=== PATIENT | male | born 1950 | race African-American/Black ===

== ENCOUNTER 2017-02-17 16:35 | Inpatient (IN) | payer MEDICARE ==
--- NOTE | ~2017-02-17 | EKG ---
PATIENT: BECCA MEDINA UNIT #: [id number] Ventricular Rate: 64 BPM Atrial Rate: 64 BPM P-R Interval: 148 ms QRS Duration: 114 ms Q-T Interval: 464 ms QTC Calculation(Bezet): 478 ms P Odell: 4 degrees Calculated R Odell: 70 degrees Calculated T Odell: 19 degrees Diagnosis Line: Normal sinus rhythm Diagnosis Line: Normal ECG Diagnosis Line: No previous ECGs available Diagnosis Line: Confirmed by TIFFANY ROBERTS MD ([id number]) on 02/18/2017 Diagnosis Line: 7:39:47 AM INTERPRETING MD: ALEJANDRA SHAH
--- NOTE | ~2017-02-17 | HP ---
Unit #: [id number] #: [id number] Patient: BECCA MEDINA [id number] [address] [place], [place] [address] [id number] MR#: [id number] NAME: BECCA MEDINA ROOM: Age: 66 Sex: M Admission Date: 02/17/2017 : 1950 Attending Physician: Nico Mcqueen M.D. Primary Care Physician: [facility] HISTORY AND PHYSICAL CHIEF COMPLAINT Dizziness. HISTORY OF PRESENT ILLNESS The patient is a 66-year-old male with a history of hypertension brought to the emergency room status post syncopal episode yesterday. The patient stated that he was standing, and then he had a fall. He went to the primary care physician earlier this morning and was recommended to go to the emergency room. The patient was found to have acute kidney injury with a creatinine of 3.2 and potassium of 2.4. The patient denied any chest pain, nausea, vomiting, diaphoresis, or shortness of breath. The patient is being admitted for the above reasons. PAST MEDICAL HISTORY 1. Diverticulitis. 2. Hypertension. 3. Possible colonic polyps in the past. ALLERGIES None. HOME MEDICATIONS 1. Lopid. 2. Atenolol. 3. Norvasc. 4. Cozaar. FAMILY HISTORY Hypertension and lung cancer. SOCIAL HISTORY Patient lives alone. He smokes one pack of cigarettes per day and drinks three to four shots with two beers on a daily basis. REVIEW OF SYSTEMS A 14-point review of systems was performed and only pertinent positive findings are described above. The remaining are negative. PHYSICAL EXAMINATION GENERAL: Patient is lying in bed not in acute distress. VITAL SIGNS: Temperature 98.1, pulse 64, respiratory rate 20, blood pressure 99/63, and saturating 97% on room air. HEENT: Head atraumatic, normocephalic. Pupils equal, round, and reactive to light and accommodation. Extraocular movements are intact. Dry mucous Unit #: [id number] #: [id number] Patient: BECCA MEDINA membranes. NECK: Supple. No tenderness. LUNGS: Clear to auscultation bilaterally. HEART: Regular rate and rhythm. ABDOMEN: Soft. Positive bowel sounds. EXTREMITIES: No cyanosis, no clubbing. Laceration at the right knee. NEUROLOGIC: Alert, awake, and oriented. No gross focal motor deficit. DIAGNOSTIC STUDIES LABORATORY: WBC 14.9, hemoglobin 13.1, hematocrit 38.6, platelets 333,000, and neutrophils 80.2. Sodium 132, potassium 2.4, chloride 102, bicarb 15, BUN 48, creatinine 3.2, AST 29, ALT 18, and albumin 3. CARDIOLOGY: EKG shows normal sinus rhythm at a rate of 64 beats per minute and QTc of 478. ASSESSMENT 1. Syncopal episode. 2. Acute kidney injury. 3. Hypokalemia. 4. Hyponatremia. PLAN Admit the patient to observation with telemetry. Continue with IV fluids of normal saline at 100 mL/hour. Replace the potassium per protocol. Check urinalysis with urine culture and urine toxicology. Check the lactic acid. If it is high, then initiate the sepsis protocol. Further recommendations will follow. Dictated by Julia Aguilar TD: 02/17/2017 21:06 JOB #: [id number] HISTORY AND PHYSICAL Page 1 of 1 X ISABELLA CRAIG MD X HISTORY AND PHYSICAL
--- NOTE | ~2017-02-17 | DS ---
Unit #: [id number] #: [id number] Patient: BECCA MEDINA [id number] [facility]. [address] [place], [place] [address] [id number] MR#: [id number] NAME: BECCA MEDINA ROOM: 326 Age: 66 Sex: M Admission Date: 02/17/2017 : 1950 Discharge Date: 02/19/2017 Attending Physician: Britton Mcclure M.D. Primary Care Physician: [facility] DISCHARGE SUMMARY DIAGNOSES ON ADMISSION 1. Acute kidney injury. 2. Hypokalemia. DIAGNOSES ON DISCHARGE 1. Acute Escherichia coli urinary tract infection. 2. Severe hypokalemia, resolved. 3. Acute kidney injury, improved. 4. Hypocalcemia. 5. Hypertension. 6. History of diverticulosis. CONSULTATION Dr. Tamayo in renal consultation. DIAGNOSTIC STUDIES LABORATORY: Patient's urine tox screen was negative. Serum cortisol level was 13. Urine culture was positive for E. coli. IMAGING: Bilateral renal ultrasound was unremarkable. HOSPITAL COURSE A 66-year-old male was admitted to the hospital with severe hypokalemia. Details are as per admission H and P. Patient received multiple runs of IV potassium. Finally, his potassium is better now. Patient was seen by Dr. Tamayo in consultation to rule out hyperaldosteronism. Patient will follow up with Dr. Tamayo on outpatient basis for further workup. Today patient is comfortable, is anxious to go home. PHYSICAL EXAMINATION VITAL SIGNS: Reveal temperature of 98.3, pulse 72 per minute, respiratory rate is 18 per minute, blood pressure is 128/72. HEENT: Revealed no conjunctival congestion. Sclerae is nonicteric. NECK: Supple. Trachea is central. RESPIRATORY: Revealed breath sounds equal bilaterally. No wheezes or crackles. HEART: Regular rate and rhythm. S1, S2. ABDOMEN: Soft, nontender. Bowel sounds are present in all four quadrants. NEUROLOGIC: Patient is alert to person, place, and time. Power is 5/5 bilaterally. Sensations are grossly intact. SKIN: Warm and dry. Unit #: [id number] #: [id number] Patient: BECCA MEDINA RECOMMENDATIONS ON DISCHARGE Condition is stable. Activity is as tolerated. MEDICATIONS 1. Lopid 600 mg p.o. b.i.d. 2. Norvasc 10 mg p.o. daily. 3. Tylenol 650 mg p.o. q.6 hours p.r.n. 4. Tenormin 50 mg p.o. daily. 5. Nitrofurantoin 100 mg p.o. b.i.d. for five days. FOLLOWUP Patient is advised to follow up with primary care physician in one week and with Dr. Tamayo in one to two weeks. NOTE: I discussed with Dr. Tamayo's partner, Dr. Benitez Butler, who advised patient to follow up with him in one to two weeks. Advised to hold on patient's Cozaar for now because of his elevated creatinine and will restart it if needed in the office. Dictated by... Julia Griffiths TD: 02/19/2017 13:46 JOB #: [id number] DISCHARGE SUMMARY Page 1 of 1 X Britton Mcclure MD X DISCHARGE SUMMARY
--- NOTE | ~2017-02-17 | CO ---
Unit #: [id number] #: [id number] Patient: BECCA MEDINA [id number] [address] [address] [id number] I MR#: [id number] NAME: EBCCA MEDINA ROOM: 326 Age: 66 Sex: M Admission Date: 02/19/2017 : 1950 Attending Physician: Britton Mcclure M.D. Primary Care Physician: Catrina [facility] Consultation Date: 02/17/2017 CONSULTATION REPORT REASON FOR CONSULTATION Hypokalemia, hypomagnesemia, and elevated creatinine level. HISTORY OF PRESENT ILLNESS The patient is a 66-year-old male with known history of hypertension, sent in from the office due to dizziness, attributed to hypokalemia and elevated creatinine level of 3.9. The patient also reports diarrhea for 2-3 times a day for several months. He does not report vomiting. No diuretics at home. The patient's medications include Cozaar. The patient's baseline creatinine is noted to be around 1 in 2017, with admission creatinine of 3.2, and a creatinine of 1.9 today. The patient does not report any loop diuretics at home. There is also noted a magnesium of 1.4 and calcium 7.1. Urine culture noted to be more than 100,000 gram-negative rods. The patient does not report any dysuria or hematuria. PAST MEDICAL HISTORY Significant for history of diverticulitis, hypertension, and history of colon polyps. ALLERGIES No known drug allergies. HOME MEDICATIONS Include Lopid, atenolol, Norvasc, and Cozaar. FAMILY HISTORY Significant for hypertension and lung cancer. SOCIAL HISTORY The patient lives by himself. He smokes a pack a day and also drinks 2-3 shots and 2-3 beers daily. REVIEW OF SYSTEMS CVS: No chest pain. RESPIRATORY: No cough. GI: As above. : No hematuria no dysuria. PHYSICAL EXAMINATION GENERAL: The patient is awake, alert, and oriented. VITAL SIGNS: Temperature 98.1, heart rate 64 per minute, and blood pressure 99/63 on admission. HEENT: Head is atraumatic. Extraocular movements are intact. Unit #: [id number] #: [id number] Patient: BECCA MEDINA NECK: Supple. There is no elevation of JVD. CVS: S1 and S2 audible. There is no S3 and no S4. No pericardial rub. CHEST: Clear. Air entry is equal bilaterally. Breathing is vesicular in nature. ABDOMEN: Soft. There is no organomegaly. No guarding. No rigidity. No rebound tenderness. EXTREMITIES: No edema. [employer]: Motor system is intact. Cerebellar system is intact. DIAGNOSTIC STUDIES LABORATORY RESULTS: Magnesium is 1.4 this morning. Sodium 135, potassium 2.5, chloride 112, CO2 of 13, BUN 34, creatinine 1.9, glucose is 142, and calcium is 7.1, WBC is 13.8 and hemoglobin and hematocrit are 11.1 and 33.4 with a platelet count of 366. IMPRESSION 1. Hypokalemia. We will check for potassium wasting from the urine. The patient does not have any obvious reason for that. No medications to account for it. The patient's potassium level was in the 3s in September and also check for hyperaldosteronism state and hypercortisolism state. We will replace the potassium and supplement as needed. Low magnesium also contributing to ongoing hypokalemia. We will supplement magnesium and follow the levels. 2. Non-anion gap metabolic acidosis, possibly secondary to diarrhea that the patient reports. We will check for renal tubular acidosis. 3. Hypocalcemia, likely underlying vitamin D deficiency. 4. Urinary tract infection. We will start on ciprofloxacin and follow urine cultures. 5. Acute kidney injury, slowly improving. Follow urine cultures. Possible hemodynamic related increase in creatinine and improving with hydration. 6. Possible underlying chronic kidney disease, stage 2-3, secondary to hypertensive nephrosclerosis. We will consider workup for paraproteinemia. 7. Hypertension. 8. Anemia. We will follow the patient with you. Dictated by... Julia Mendoza TD: 02/19/2017 14:13 JOB #: [id number] CONSULTATION REPORT Page 1 of 1 X Benitez Butler MD CONSULTATION REPORT
--- NOTE | ~2017-02-17 | US77 ---
[facility] A Service of [facility] RADIOLOGY TEXT RESULTS PATIENT: BECCA MEDINA LOCATION: [facility] 326-01 : [birth year] UNIT #: [id number] AGE: [address]: Britton Mcclure MD SEX: M ORDER DR: [id number] [facility] [address]. [place], [place] [address] [id number] MR#: [id number] Acc #: [id number] NAME: BECCA MEDINA : 1950 SEX: M STUDY DATE/TIME: 02/18/2017 19:38 UNIT: [facility] ROOM: [facility] STUDY DESCRIPTION: US Kidney Bilateral Complete Attending Physician: Britton Mcclure M.D. Ordering Physician: Magdi Abdi M.D. Primary Care Physician: [facility] MEDICAL IMAGING REPORT This report is preliminary unless electronic signature is present EXAM Renal ultrasound INDICATIONS Renal failure. eGFR 41.9. COMPARISON CT abdomen and pelvis dated 06/10/2007. FINDINGS The right kidney measures 12.2 cm. The left kidney measures 10.6 cm. Renal cortical thickness and echogenicity is normal. No hydronephrosis. The bladder is unremarkable. IMPRESSION Negative renal ultrasound. No hydronephrosis. Dictated by... Werner Guthrie M.D. THIS IS AN ELECTRONICALLY VERIFIED REPORT Werner Guthrie M.D. at 02/19/2017 1:17 PM C/psc TD: 02/18/2017 21:26 JOB #: [id number] MEDICAL IMAGING REPORT Page 1 of 1 COPY
[~2017-02-17 16:35] MED LIST: CIPRO; FLAGYL; HCTZ PO; NORVASC PO
[2017-02-17 17:35] LABS: BASOPHIL# 0.1 X10e3 (0-0.3); BASOPHIL% 0.7 % (0-2.5); EOSINOPHIL# 0.1 X10e3 (0-0.7); EOSINOPHIL% 0.4 % (0.0-7.0); HEMATOCRIT 38.6 % (38.0-50.0); HEMOGLOBIN 13.1 gm/dL (13.0-16.0); LYMPHOCYTE# 1.6 X10e3 (1.0-3.5); LYMPHOCYTE% 10.7 % (17.0-45.0); MEAN CELL VOLUME 92.5 FL (83-96); MEAN CORPUSCULAR HEMOGLOBIN 31.3 PG (28-34); MEAN CORPUSCULAR HGB CONC 33.8 g/dL (30-36); MEAN PLATELET VOLUME 9.5 FL (6.5-11.5); MONOCYTE# 1.2 X10e3 (0-1.0); NEUTROPHIL% 80.2 % (40-75); PLATELET COUNT 333 X10e3 (140-420); RED BLOOD COUNT 4.18 X10e (3.90-5.60); WHITE BLOOD COUNT 14.9 X10e3 (4.0-10.5)
[2017-02-17 17:43] LABS: DIFF IND NO
[2017-02-17 18:39] LABS: BILIRUBIN, DIRECT 0.2 mg/dL (0.0-0.2); BILIRUBIN,INDIRECT 0.2 mg/dL (0.0-0.9); BILIRUBIN,TOTAL 0.4 mg/dL (0.2-2.0); CALCIUM SERUM 7.7 mg/dL (8.4-10.2); CREATININE SERUM 3.2 mg/dL (0.6-1.4); GLOM FILT RATE Estimated 22.3 mL/min (>60); PROTEIN TOTAL SERUM 8.5 g/dL (6.0-8.3)
[2017-02-17 18:47] LABS: POTASSIUM 2.4 mmol/L (3.5-5.1)
[2017-02-17] MEDS ORDERED: LOPID600 MG PO (19:07)
[2017-02-17] MEDS ORDERED: ATENOLOL50 MG PO (19:08)
[2017-02-17] MEDS ORDERED: COZAAR100 MG PO (19:08)
[2017-02-17] MEDS ORDERED: NORVASC10 MG PO (19:08)
[2017-02-17 19:53] LABS: POC - CKMB 1.4 ng/mL (0.0-7.9); POC - TROPONIN <0.05 ng/mL (<=0.05)
[2017-02-17 20:02] LABS: URINE SOURCE CLEAN CATCH
[2017-02-17 20:11] LABS: URINE APPEARANCE CLEAR; URINE BILIRUBIN NEG (NEG); URINE BLOOD 2+ (NEG); URINE COLOR YELLOW; URINE GLUCOSE NEG (NEG); URINE KETONE NEG (NEG); URINE LEUKOCYTE ESTERASE 3+ (NEG); URINE NITRATE NEG (NEG); URINE PH 5.5 (5-8); URINE PROTEIN 1+ (NEG); URINE SPECIFIC GRAVITY 1.012 (1.003-1.035)
[2017-02-17 20:12] LABS: CULTURE INDICATED? YES; URINE BACTERIA AUWI 2+ (NEGATIVE); URINE SQUAMOUS EPITHELIAL CELL NONE SEEN /[HPF]; UWBCS1 AUWI 25-50 (0-5)
[2017-02-17 20:22] LABS: AMPHETAMINE NEG (NEG); BARBITURATES NEG (NEG); BENZODIAZEPINES NEG (NEG); COCAINE NEG (NEG); MARIJUANA NEG (NEG); OPIATES NEG (NEG); TRICYCLIC ANTIDEPRESSANTS NEG (NEG); U METHADONE NEG (NEG)
[2017-02-18 08:04] LABS: BASOPHIL# 0.1 X10e3 (0-0.3); BASOPHIL% 0.8 % (0-2.5); EOSINOPHIL# 0.1 X10e3 (0-0.7); EOSINOPHIL% 0.8 % (0.0-7.0); HEMATOCRIT 33.4 % (38.0-50.0); LYMPHOCYTE# 1.6 X10e3 (1.0-3.5); LYMPHOCYTE% 11.9 % (17.0-45.0); MEAN CELL VOLUME 92.7 FL (83-96); MEAN CORPUSCULAR HEMOGLOBIN 30.9 PG (28-34); MEAN CORPUSCULAR HGB CONC 33.3 g/dL (30-36); MEAN PLATELET VOLUME 9.4 FL (6.5-11.5); MONOCYTE# 1.2 X10e3 (0-1.0); MONOCYTE% 8.9 % (3.0-12.0); NEUTROPHIL# 10.7 X10e3 (1.5-7.1); NEUTROPHIL% 77.6 % (40-75); PLATELET COUNT 366 X10e3 (140-420); WHITE BLOOD COUNT 13.8 X10e3 (4.0-10.5)
[2017-02-18 08:06] LABS: HEMOGLOBIN 11.1 gm/dL (13.0-16.0)
[2017-02-18 08:07] LABS: DIFF IND NO
[2017-02-18 08:34] LABS: CALCIUM SERUM 7.3 mg/dL (8.4-10.2); GLOM FILT RATE Estimated 39.4 mL/min (>60)
[2017-02-18 08:40] LABS: POTASSIUM 2.7 mmol/L (3.5-5.1)
[2017-02-18 09:49] LABS: BUN/CREATININE RATIO 17.89; CALCIUM SERUM 7.1 mg/dL (8.4-10.2); CREATININE SERUM 1.9 mg/dL (0.6-1.4); GLOM FILT RATE Estimated 41.9 mL/min (>60)
[2017-02-18 10:01] LABS: POTASSIUM 2.5 mmol/L (3.5-5.1)
[2017-02-18 21:31] LABS: URINE APPEARANCE CLOUDY; URINE BILIRUBIN NEG (NEG); URINE BLOOD 2+ (NEG); URINE COLOR YELLOW; URINE GLUCOSE NEG (NEG); URINE KETONE NEG (NEG); URINE LEUKOCYTE ESTERASE 3+ (NEG); URINE NITRATE NEG (NEG); URINE PH 5.5 (5-8); URINE PROTEIN 1+ (NEG); URINE SPECIFIC GRAVITY 1.012 (1.003-1.035)
[2017-02-18 21:32] LABS: URINE BACTERIA AUWI 3+ (NEGATIVE); URINE SQUAMOUS EPITHELIAL CELL NONE SEEN /[HPF]; UWBCS1 AUWI 200-300 (0-5)
[2017-02-18 21:56] LABS: CREATININE,RANDOM URINE 98 mg/dL; POTASSIUM,URINE RANDOM 21 mmol/L
[2017-02-18 22:08] LABS: SODIUM URINE RANDOM 20 mmol/L
[2017-02-19 05:43] LABS: HEMATOCRIT 30.7 % (38.0-50.0); HEMOGLOBIN 10.2 gm/dL (13.0-16.0); MEAN CELL VOLUME 92.8 FL (83-96); MEAN CORPUSCULAR HGB CONC 33.4 g/dL (30-36); MEAN PLATELET VOLUME 9.1 FL (6.5-11.5); RED BLOOD COUNT 3.3 X10e (3.90-5.60); RED CELL DISTRIBUTION WIDTH 15.1 % (11.0-15.5); WHITE BLOOD COUNT 10.4 X10e3 (4.0-10.5)
[2017-02-19 06:59] LABS: ALBUMIN SERUM 2.2 g/dL (3.5-5.0); BILIRUBIN,TOTAL 0.2 mg/dL (0.2-2.0); BUN/CREATININE RATIO 16.92; CALCIUM SERUM 7.5 mg/dL (8.4-10.2); CREATININE SERUM 1.3 mg/dL (0.6-1.4); GLOM FILT RATE Estimated 66.4 mL/min (>60); MAGNESIUM 2.1 mg/dL (1.6-3.0); POTASSIUM 3.5 mmol/L (3.5-5.1); PROTEIN TOTAL SERUM 6.6 g/dL (6.0-8.3)
[2017-02-19 07:02] LABS: PHOSPHOROUS 0.8 mg/dL (2.5-4.6)
[2017-02-19] MEDS ORDERED: APAP325 M2 PO (18:57)
[2017-02-19] MEDS ORDERED: NITROFURANTOIN100 M3 PO (18:58)
[2017-02-20 12:03] LABS: ALDOSTERONE SERUM <1 ng/dL (***)
[2017-02-23 07:34] LABS: SPE A1GLOB (PNL) 0.7 g/dL (0.2-0.3); SPE A2GLOB (PNL) 1.4 g/dL (0.5-0.9); SPE ALB (PNL) 2.4 g/dL (3.8-4.8); SPE BETA 1 GLOBULIN 0.5 g/dL (0.4-0.6); SPE BETA 2 GLOBULIN 0.5 g/dL (0.2-0.5); SPE GAMMA (PNL) 1.2 g/dL (0.8-1.7); SPETP (PNL) 6.6 g/dL (6.1-8.1)
== END 2017-02-19 21:39 | disposition home or self-care (01) | DRG 683 ==
LOC: CED 16:35 → CEDOF 19:15 → CED 19:15 → C3A PCU 19:30 → CED 19:30 → CEDOF 19:30 → C3A PCU 02-18 03:18 → CEDOF 02-18 03:18 → C3A PCU 02-18 07:38 → CED 02-19 11:10 → CEDOF 02-19 11:10 → C3A PCU 02-19 11:10
PROVIDERS: Emergency Medicine; Internal Medicine; Internal Medicine Nephrology
DX: N17.9 Acute kidney failure, unspecified (principal); N39.0 Urinary tract infection, site not specified; E87.2 Acidosis; E87.1 Hypo-osmolality and hyponatremia; E27.40 Unspecified adrenocortical insufficiency; E87.6 Hypokalemia; B96.20 Unspecified Escherichia coli [E. coli] as the cause of diseases classified elsewhere; E83.51 Hypocalcemia; F17.210 Nicotine dependence, cigarettes, uncomplicated; Z86.010 Personal history of colon polyps; I12.9 Hypertensive chronic kidney disease with stage 1 through stage 4 chronic kidney disease, or unspecified chronic kidney disease; N18.3 Chronic kidney disease, stage 3 (moderate); D64.9 Anemia, unspecified; E83.42 Hypomagnesemia
CPT/HCPCS: 36415; 76770; 80048; 80053; 80076; 80307; 81003; 82024; 82088; 82306; 82436; 82533; 82553; 82570; 82652; 83605; 83735; 84100; 84133; 84165; 84244; 84300; 84484; 85025; 85027; 86334; 86335; 87086; 87088; 87186; 93005; 94760; 96360; 99285; J0610; J1956; J3475; J3480